=== PATIENT | female | born 1995 | race Caucasian/White ===

== ENCOUNTER 2022-05-30 02:55 | Inpatient (IN) | payer OTHER ==
[2022-05-30] MEDS ORDERED: CITRIC ACID/SODIUM CITRATE 30 ML UNIT-DOSE CUP PO ONE (04:15)
[2022-05-30] MEDS ORDERED: ELECTROLYTE-148 SOLN 500 ML IV ONE (04:15)
[2022-05-30 04:42] VITALS: BMI 40.2
[2022-05-30] MEDS: ELECTROLYTE-148 SOLN 1,000 ML IV SCH (04:50)
[2022-05-30] MEDS ORDERED: FENTANYL CITRATE/PF 50 MCG/ML VIAL ONE (05:04)
[2022-05-30] MEDS ORDERED: morphine SULFATE/PF 1 MG/2 ML (2cc Syringe - QUVA) ONE (05:04)
[2022-05-30] MEDS ORDERED: KETOROLAC TROMETHAMINE 30 MG/1 ML VIAL ONE (05:10)
[2022-05-30] MEDS ORDERED: ceFAZolin SODIUM 1 GM VIAL ONE ×2 (05:10→10:31)
[2022-05-30] MEDS ORDERED: OXYTOCIN 10 UNITS/ML VIAL ONE (05:10)
[2022-05-30] MEDS ORDERED: ONDANSETRON 4 MG/2 ML VIAL ONE (05:10)
[2022-05-30] MEDS ORDERED: WITCH HAZEL 50% (TUCKS) 40 PAD/JAR PAD TP PRN (05:19)
[2022-05-30] MEDS ORDERED: IBUPROFEN 800 MG/8 ML IJ IVPB PRN (05:19)
[2022-05-30] MEDS ORDERED: METHYLERGONOVINE MALEATE 0.2 MG/1 ML AMP IM PRN (05:19)
[2022-05-30] MEDS ORDERED: ELECTROLYTE-148 SOLN 1,000 ML IV SCH (05:30)
[2022-05-30] MEDS ORDERED: morphine SULFATE/PF 1 MG/2 ML (2cc Syringe - QUVA) SPIN ONE (06:59)
[2022-05-30] MEDS ORDERED: ONDANSETRON 4 MG/2 ML VIAL IVPUSH PRN (06:59)
[2022-05-30] MEDS ORDERED: ACETAMINOPHEN 1000 MG/100 ML BAG IVPB ONE (07:00)
[2022-05-30] MEDS ORDERED: OXYTOCIN 20 UNITS in 0.9% NS 20 UNIT/1,000 ML INFUS.BAG IV ONE ×2 (07:34→08:52)
[2022-05-30] MEDS: OXYTOCIN 20 UNITS in 0.9% NS 20 UNIT/1,000 ML INFUS.BAG IV SCH ×2 (07:45→08:40)
[2022-05-30] MEDS ORDERED: TRANEXAMIC ACID 1000 MG/10 ML VIAL IVPUSH ONE (08:06)
[2022-05-30 10:15] LABS: CORD HCO3 26.7 mmHg (20-29); CORD PCO2 72.3 mmHg (30-78); CORD pH 7.186 (7.14-7.44)
[2022-05-30 10:16] LABS: CORD BASE EXCESS -3.6 mmol/L (0-2); CORD HCO3 24.9 mmHg (20-29); CORD PCO2 56.7 mmHg (30-78); CORD pH 7.261 (7.14-7.44)
[2022-05-30 10:24] LABS: RETICULOCYTES 2.49 % (0.5-1.5)
[2022-05-30] MEDS ORDERED: DEXTROSE 5%-WATER - 50 ML IVPB ONE (10:31)
[2022-05-30] MEDS: CEFAZOLIN 1 GM in DEXTROSE 5%-WATER - 50 ML IVPB SCH ×2 (10:35→17:17)
[2022-05-30 10:53] LABS: URIC ACID 5.7 mg/dL (2.6-7.2)
[2022-05-30 11:31] LABS: BASO % 0.2 % (0-2.0); EOS % 0.4 % (0-4.5); HEMATOCRIT 33.2 % (32.4-45.2); HEMOGLOBIN 11.2 GM/dL (10.7-15.3); LYMPH % 13.4 % (8-40); MCH 28.4 pg (25.7-33.7); MCHC 33.8 g/dl (32.0-36.0); MEAN CELL VOLUME 83.8 fl (80-96); MEAN PLT VOLUME 9.3 fl (7.5-11.1); MONO % 4.3 % (3.8-10.2); NEUT % 81.7 % (42.8-82.8); RBC 3.95 M/mm3 (3.60-5.2); RDW 15.1 % (11.6-15.6)
[2022-05-30 11:32] LABS: WHITE BLOOD COUNT 15.4 K/mm3 (4.0-10.0)
[2022-05-30 11:33] LABS: PLATELET COUNT 175 10^3/uL (134-434)
[2022-05-30] MEDS ORDERED: oxyCODONE HCL 5 MG TABLET PO PRN ×2 (17:19)
[2022-05-30] MEDS: IBUPROFEN 600 MG TABLET (FP) PO PRN (23:00)
[2022-05-30] MEDS: SIMETHICONE 80 MG TAB.CHEW (FP) PO PRN (23:00)
[2022-05-31] MEDS: CEFAZOLIN 1 GM in DEXTROSE 5%-WATER - 50 ML IVPB SCH (01:40)
[2022-05-31] MEDS: IBUPROFEN 600 MG TABLET (FP) PO PRN ×3 (03:00→21:40)
[2022-05-31] MEDS: SIMETHICONE 80 MG TAB.CHEW (FP) PO PRN ×2 (03:01→21:40)
[2022-05-31] MEDS ORDERED: BISACODYL 10 MG SUPP.RECT RC PRN (05:19)
[2022-05-31] MEDS: OXYTOCIN 20 UNITS in 0.9% NS 20 UNIT/1,000 ML INFUS.BAG IV SCH (05:31)
[2022-05-31] MEDS: ELECTROLYTE-148 SOLN 1,000 ML IV SCH (05:32)
[2022-05-31 08:31] LABS: HEMATOCRIT 27.9 % (32.4-45.2); HEMOGLOBIN 9.4 GM/dL (10.7-15.3); MCH 28.3 pg (25.7-33.7); MCHC 33.8 g/dl (32.0-36.0); MEAN CELL VOLUME 83.9 fl (80-96); MEAN PLT VOLUME 9.2 fl (7.5-11.1); PLATELET COUNT 159 10^3/uL (134-434); RBC 3.33 M/mm3 (3.60-5.2); RDW 15.3 % (11.6-15.6); WHITE BLOOD COUNT 11.3 K/mm3 (4.0-10.0)
[2022-05-31 08:32] LABS: BASO % 0.4 % (0-2.0); EOS % 1.2 % (0-4.5); LYMPH % 21.8 % (8-40); MONO % 7.3 % (3.8-10.2); NEUT % 69.3 % (42.8-82.8)
[2022-05-31] MEDS: ACETAMINOPHEN 325 MG TABLET (FP) PO PRN (09:26)
[2022-05-31] MEDS: PRENATAL VITAMINS W/ FOLIC ACID TABLET (FP) PO SCH (09:28)
[2022-05-31] MEDS: FERROUS SO4 325 MG TABLET (FP) PO SCH ×2 (09:28→21:40)
[2022-06-01] MEDS: IBUPROFEN 600 MG TABLET (FP) PO PRN ×4 (04:44→20:11)
[2022-06-01] MEDS: SIMETHICONE 80 MG TAB.CHEW (FP) PO PRN ×3 (04:45→20:11)
[2022-06-01] MEDS: PRENATAL VITAMINS W/ FOLIC ACID TABLET (FP) PO SCH (09:14)
[2022-06-01] MEDS: FERROUS SO4 325 MG TABLET (FP) PO SCH ×2 (09:15→22:11)
[2022-06-01] MEDS: ACETAMINOPHEN 325 MG TABLET (FP) PO PRN (22:11)
[2022-06-01] MEDS: LABETALOL HCL 200 MG TABLET (FP) PO PRN (22:11)
[2022-06-02] MEDS: IBUPROFEN 600 MG TABLET (FP) PO PRN ×3 (04:31→22:43)
[2022-06-02] MEDS: SIMETHICONE 80 MG TAB.CHEW (FP) PO PRN ×3 (06:29→22:43)
[2022-06-02] MEDS: ACETAMINOPHEN 325 MG TABLET (FP) PO PRN (06:29)
[2022-06-02 07:54] LABS: BASO % 0.7 % (0-2.0); EOS % 2.7 % (0-4.5); HEMATOCRIT 24.9 % (32.4-45.2); HEMOGLOBIN 8.6 GM/dL (10.7-15.3); LYMPH % 26.8 % (8-40); MCH 29.1 pg (25.7-33.7); MCHC 34.5 g/dl (32.0-36.0); MEAN CELL VOLUME 84.3 fl (80-96); MEAN PLT VOLUME 8.6 fl (7.5-11.1); MONO % 7.6 % (3.8-10.2); NEUT % 62.2 % (42.8-82.8); PLATELET COUNT 203 10^3/uL (134-434); RBC 2.95 M/mm3 (3.60-5.2); RDW 15.6 % (11.6-15.6); WHITE BLOOD COUNT 8.7 K/mm3 (4.0-10.0)
[2022-06-02] MEDS: PRENATAL VITAMINS W/ FOLIC ACID TABLET (FP) PO SCH (11:08)
[2022-06-02] MEDS: FERROUS SO4 325 MG TABLET (FP) PO SCH ×2 (11:09→22:43)
[2022-06-02] MEDS: LABETALOL HCL 200 MG TABLET (FP) PO PRN (22:54)
[2022-06-02 22:55] VITALS: RESP 18
[2022-06-03] MEDS: IBUPROFEN 600 MG TABLET (FP) PO PRN (09:07)
[2022-06-03] MEDS: PRENATAL VITAMINS W/ FOLIC ACID TABLET (FP) PO SCH (09:08)
[2022-06-03] MEDS: FERROUS SO4 325 MG TABLET (FP) PO SCH (09:08)
[2022-06-03 10:27] VITALS: BP 127/73; PULSE 70; TEMP 97.7
== END 2022-06-03 11:10 | disposition home or self-care (01) | DRG 540 ==
LOC: JDEL 02:55 → JLDR 04:20 → J3W 12:19
PROVIDERS: ADMIT Obstetrics & Gynecology; ATTEND Obstetrics & Gynecology
PROC: 10D00Z1 Extraction of Products of Conception, Low, Open Approach (ICD-10-PCS; principal; 2022-05-30)
DX: O34.211 Maternal care for low transverse scar from previous cesarean delivery (principal); O98.52 Other viral diseases complicating childbirth; U07.1 COVID-19; N85.8 Other specified noninflammatory disorders of uterus; O36.63X0 Maternal care for excessive fetal growth, third trimester, not applicable or unspecified; Z3A.38 38 weeks gestation of pregnancy; Z37.0 Single live birth
CPT/HCPCS: 36415; 36600; 80048; 82803; 82977; 83010; 84450; 84460; 84550; 85025; 85045; 85610; 85730; 86780; 86850; 86900; 86901; 88307-TC; C9803-CS; U0003; U0005